=== PATIENT | female | born 1985 | race Caucasian/White ===

== ENCOUNTER 2018-12-26 14:50 | Emergency (ER) | payer MEDICAID ==
[~2018-12-26] VITALS: Ht 157.5 cm; Wt 72.7 kg
[2018-12-26 14:59] VITALS: BP 144/95; PULSE 74; RESP 20; Ht 157.5 cm; Wt 72.7 kg
--- NOTE | 2018-12-26 21:08 | ERD ---
ER Documentation Chief Complaint Chief Complaint sob; cough; needs x ray ( pneumonia) HPI 33-year-old female presents to ED sent over by her primary care provider for an x-ray to rule out pneumonia. Patient states that she was diagnosed with pneumonia on November 28 and was admitted to the hospital for 3 days. She was given IV antibiotics and discharged with Levaquin for 1 week. Today she states that she feels fine. She denies any fevers, chills or signs of respiratory distress. She states that she is breathing well but does report an occasional cough every once in a while. She reports shortness of breath only with extraneous activity. Patient states that she was a smoker but has not smoked cigarettes since being discharged from the hospital. She denies a history of asthma or COPD. Today she states that she is doing well overall. She is just here for chest x-ray. Past medical history of hypertension ROS All systems reviewed and are negative except as per history of present illness. Allergies Allergies: Coded Allergies: No Known Allergy (Unverified , 12/26/18) PMhx/Soc Hx Cardiac Disorders: Yes (HTN) Hx Alcohol Use: No Hx Substance Use: No Hx Tobacco Use: No Smoking Status: Former smoker FmHx Family History: No diabetes Physical Exam Vitals Vital Signs Date Temp Pulse Resp B/P (MAP) Pulse Ox O2 O2 Flow FiO2 Time Delivery Rate 12/26/18 97.5 74 20 144/95 99 14:59 (111) Physical Exam Const: No acute distress Head: Atraumatic Neck: Full range of motion. No meningismus. Resp: Slight wheezing in lower lungs bilat Cardio: Regular rate and rhythm, no murmurs Abd: Soft, non tender, non distended. Normal bowel sounds Skin: No petechiae or rashes Back: No midline or flank tenderness Ext: No cyanosis, or edema Neur: Awake and alert Psych: Normal Mood and Affect Result Diagram: 12/26/18 1756 12/26/18 1756 Results 24 hrs Laboratory Tests Test 12/26/18 17:56 White Blood Count 9.8 10^3/ul Red Blood Count 4.63 10^6/ul Hemoglobin 13.0 g/dl Hematocrit 39.5 % Mean Corpuscular Volume 85.3 fl Mean Corpuscular Hemoglobin 28.1 pg Mean Corpuscular Hemoglobin Concent 32.9 g/dl Red Cell Distribution Width 13.7 % Platelet Count 298 10^3/UL Mean Platelet Volume 9.6 fl Immature Granulocytes % 0.300 % Neutrophils % 66.7 % Lymphocytes % 25.1 % Monocytes % 5.8 % Eosinophils % 1.6 % Basophils % 0.5 % Nucleated Red Blood Cells % 0.0 /100WBC Immature Granulocytes # 0.030 10^3/ul Neutrophils # 6.5 10^3/ul Lymphocytes # 2.5 10^3/ul Monocytes # 0.6 10^3/ul Eosinophils # 0.2 10^3/ul Basophils # 0.1 10^3/ul Nucleated Red Blood Cells # 0.0 10^3/ul Sodium Level 137 mmol/L Potassium Level 3.8 mmol/L Chloride Level 98 mmol/L Carbon Dioxide Level 28 mmol/L Anion Gap 11 Blood Urea Nitrogen 15 mg/dl Creatinine 0.68 mg/dl Est Glomerular Filtrat Rate mL/min > 60 mL/min Glucose Level 97 mg/dl Calcium Level 9.7 mg/dl Procedures/MDM ED COURSE: The patient was stable throughout ED course. I kept the patient informed of laboratory and diagnostic imaging results throughout the ED course. DIAGNOSTIC IMAGING: Read by radiologist. PROCEDURE: XR Chest. CLINICAL INDICATION: Pneumonia, follow-up TECHNIQUE: PA and lateral views of the chest were obtained. COMPARISON: None available FINDINGS: The cardiomediastinal silhouette is within normal limits. The lungs appear clear. No pleural effusion or pneumothorax is identified. Thoracic spondylosis/degenerative enthesopathy is noted. IMPRESSION: No active cardiopulmonary disease identified. RPTAT: VV .Yuri Lerner MD, Date Time Electronically viewed and signed by .Yuri Lerner MD, MD on 12/26/2018 18:42 MEDICATIONS GIVEN: [None.] MEDICAL DECISION MAKING: Patient is a 33-year-old female sent by her primary care provider for chest x- ray to rule out and follow-up pneumonia. At this time I have low suspicion for pneumonia, PE, abscess, pleural effusion or pneumothorax. Her vital signs were reviewed. Patient is afebrile. Patient was not hypoxic. Patient was hemodynamically stable. Patient stated that she had to leave early before receiving her x-ray and laboratory results because she had to go pick her daughter up. Patient signed AMA form. Patient was told to follow up with primary care for further care and management. PRESCRIPTION: none The patient has made the decision to leave this Emergency Department and any ongoing care against the advice of the emergency physician. The patient has been informed of and verbalized understanding of the inherent risks of this decision. The patient explained to me the reason for wanting to sign out against medical advice which was to get back to her daughter. The patient has the capacity to make this decision and accepts the responsibility of leaving at this time. The patient and all necessary parties have been advised that the patient may return at any time for further evaluation or treatment. The patient's condition at time of discharge is stable. Departure Diagnosis: Primary Impression: Cough Condition: Fair Patient Instructions: Pneumonia (Adult) Referrals: [facility] Additional Instructions: Call your primary care doctor TOMORROW for an appointment during the next 1-2 days.See the doctor sooner or return here if your condition worsens before your appointment time. SAYDA MAR PA-C Dec 26, 2018 21:08
== END 2018-12-26 18:04 | disposition left against medical advice (07) ==
LOC: FTE 14:50
DX: R05 Cough (principal); I10 Essential (primary) hypertension; Z87.891 Personal history of nicotine dependence
CPT/HCPCS: 71046; 80048; 85025; Z7502